=== PATIENT | female | born 1955 | race Caucasian/White ===

== ENCOUNTER 2016-09-08 11:35 | Observation (INO) | payer BC, OTHER ==
[2016-09-08 12:17] LABS: CHLORIDE,CL 104 mmol/L (98-107); SODIUM,NA 140 mmol/L (136-145)
[2016-09-08] MEDS ORDERED: Sodium Chloride 0.9% 1,000 ML IV ONE (12:56)
[2016-09-08] MEDS ORDERED: Ondansetron 4 MG/2 ML SDV IVPUSH PRN (12:56)
[2016-09-08] MEDS ORDERED: Morphine 2 MG/ML Syringe IVPUSH PRN (12:57)
--- NOTE | 2016-09-08 13:06 | EDM.PDOC ---
ED HPI GENERAL MEDICAL PROBLEM - General Chief Complaint: Gastrointestinal Problem Stated Complaint: Nausea, vomitting Time Seen by Provider: 09/08/16 12:22 Source of Information: Reports: Patient, Family History Limitations: Reports: No Limitations - History of Present Illness INITIAL COMMENTS - FREE TEXT/NARRATIVE: Patient is camping locally for the holiday. Brought in by for vomiting and diarrhea. Patient says she felt well yesterday until later in the evening. At that time she developed a headache. After awhile, nausea was noted. This was followed by several episodes of emesis. Eventually diarrhea began. She had multiple episodes of emesis/loose stools overnight, often at the same time. Unable to keep anything down. Complains of feeling hot/cold at times. No specific fever. Denies URI/cold symptoms. No SOB/cough/respiratory changes. Has discomfort in bilateral abdomen, mostly in lower quadrants. Denies other pain at this time. No complaints. Did see some bright red blood in more recent bowel movements. No other complaints. Overall unremarkable past history. Smoker. History of normal colonoscopy. No history of GI bleed. Lower Abdominal Pain Score (Numeric/FACES): 6 - Related Data Allergies Allergy/AdvReac Type Severity Reaction Status Date / Time Iodinated Contrast- Oral and Allergy Other Verified 09/08/16 11:53 IV Dye Home Meds: Home Meds Aspirin/Acetaminophen/Caffeine [Migraine Relief Caplet] 2 tab PO ASDIRECTED 05/23 [History] Folic Acid/Multivit-Min/Lutein [Multi-Vitamin Gummies] 1 tab PO DAILY 09/08/16 [ History] L. Acidophilus/Pectin, [place] [Acidophilus Capsule] 1 cap PO DAILY 09/08/16 [ History] Loratadine 10 mg PO ASDIRECTED PRN 09/08/16 [History] Nortriptyline HCl [Nortriptyline HCl] 25 mg PO DAILY 09/08/16 [History] Vitamin B Complex 1 each PO DAILY 09/08/16 [History] Past Medical History - Past Surgical History HEENT Surgical History: Reports: Tonsillectomy GI Surgical History: Reports: Appendectomy, Other (See Below) Other GI Surgeries/Procedures: Bladder lift Female Surgical History: Reports: Section, Hysterectomy Musculoskeletal Surgical History: Reports: Ganglion Cyst, Other (See Below) Other Musculoskeletal Surgeries/Procedures:: disk in neck replaced Social & Family History - Tobacco Use Smoking Status *Q: Current Some Day Smoker Years of Tobacco use: 40 Packs/Tins Daily: 0.5 - Caffeine Use Caffeine Use: Reports: Coffee, Soda - Recreational Drug Use Recreational Drug Use: No ED ROS GENERAL - Review of Systems Review Of Systems: See Below Constitutional: Reports: Chills, Malaise, Weakness, Fatigue, Diaphoresis, Decreased Appetite. Denies: Fever, Night Sweats HEENT: Reports: No Symptoms Respiratory: Reports: No Symptoms Cardiovascular: Reports: No Symptoms GI/Abdominal: Reports: Abdominal Pain, Bloody Stool, Diarrhea, Decreased Appetite, Nausea, Vomiting. Denies: Black Stool, Difficulty Swallowing, Distension, Hematemesis : Reports: No Symptoms Musculoskeletal: Reports: No Symptoms Skin: Reports: No Symptoms Neurological: Reports: Headache. Denies: Confusion, Dizziness, Numbness, Paresthesia, Pre-Existing Deficit, Syncope, Tingling, Trouble Speaking, Difficulty Walking, Change in Speech, Gait Disturbance Psychiatric: Reports: No Symptoms Hematologic/Lymphatic: Reports: No Symptoms ED EXAM, GI/ABD - Physical Exam Exam: See Below Exam Limited By: No Limitations General Appearance: Alert, WD/WN, Other (appears fatigued. Somewhat pale. ) Eyes: Bilateral: Normal Appearance, EOMI Ears: Normal External Exam Nose: Normal Inspection Throat/Mouth: Normal Inspection, Normal Lips, Normal Voice, No Airway Compromise Head: Atraumatic, Normocephalic Neck: Normal Inspection, Supple, Non-Tender, Full Range of Motion. No: Lymphadenopathy (L), Lymphadenopathy (R) Respiratory/Chest: No Respiratory Distress, Lungs Clear, Normal Breath Sounds, No Accessory Muscle Use, Chest Non-Tender Cardiovascular: Normal Peripheral Pulses, Regular Rate, Rhythm, No Edema, No Murmur GI/Abdominal: Soft, No Organomegaly, Hypoactive Bowel Sounds, Tenderness ( diffusely tender all 4 quadrants. ) (Female) Exam: Normal External Exam Rectal (Female) Exam: Normal Rectal Tone, Rectal Fissure, Other (Skin around rectum very raw, several areas of pinpoint bleeding noted. No hemorrhoids externally. Single fissure noted with mild bleeding. ) Back Exam: Normal Inspection. No: CVA Tenderness (L), CVA Tenderness (R) Extremities: Normal Range of Motion, Non-Tender, No Pedal Edema, Other (cap refill around 4 seconds) Neurological: Alert, Oriented, Normal Cognition, No Motor/Sensory Deficits Psychiatric: Normal Affect, Normal Mood Skin Exam: Warm, Dry, Intact Course - Vital Signs Last Recorded V/S: Last Vital Signs Temp 36.4 C 09/08/16 11:36 Pulse 80 09/08/16 11:36 Resp 18 09/08/16 11:36 BP 129/62 09/08/16 11:36 Pulse Ox 98 09/08/16 11:36 - Orders/Labs/Meds Orders: Medication Orders Acetaminophen (Tylenol) 650 mg PO Q4H PRN PRN Reason: analgesia/fever Sodium Chloride (Normal Saline) 1,000 mls @ 500 mls/hr IV .BOLUS ONE Stop: 09/08/16 14:55 Sodium Chloride (Normal Saline) 1,000 mls @ 125 mls/hr IV ASDIRECTED [facility] Morphine Sulfate (Morphine) 2 mg IVPUSH Q2H PRN PRN Reason: Pain (moderate 4-6) Ondansetron HCl (Zofran) 4 mg IVPUSH Q6H PRN PRN Reason: Nausea/Vomiting Labs: Laboratory Tests 09/08/16 09/08/16 Range/Units 12:00 12:00 WBC 16.5 H (4.0-10.2) K/uL RBC 4.91 (3.77-5.09) M/uL Hgb 15.2 (11.7-15.5) g/dL Hct 43.8 (34.0-46.0) % MCV 89.2 (84.0-98.0) fL MCH 31.0 (28.2-33.3) pg MCHC 34.7 (31.7-36.0) g/dL RDW 12.9 (11.2-14.1) % Plt Count 232 (150-350) K/uL Neut % (Auto) 90.7 H (45.0-80.0) % Lymph % (Auto) 6.9 L (10.0-50.0) % [place] % (Auto) 2.3 (2.0-14.0) % Eos % (Auto) 0.0 (0.0-5.0) % Baso % (Auto) 0.1 (0.0-2.0) % Neut # (Auto) 14.93 H (1.40-7.00) K/uL Lymph # (Auto) 1.13 (0.50-3.50) K/uL [place] # (Auto) 0.38 (0.00-1.00) K/uL Eos # (Auto) 0.00 (0.00-0.50) K/uL Baso # (Auto) 0.02 (0.00-0.20) K/uL Sodium 140 (136-145) mmol/L Potassium 3.8 (3.5-5.1) mmol/L Chloride 104 (98-107) mmol/L Carbon Dioxide 28.4 (21.0-32.0) mmol/L BUN 14 (7-18) mg/dL Creatinine 0.68 (0.51-1.17) mg/dL Est Cr Clr Drug Dosing 72.78 mL/min Estimated GFR (MDRD) > 60 mL/min Glucose 143 H (74-106) mg/dL Calcium 8.9 (8.5-10.1) mg/dL Total Bilirubin 0.3 (0.2-1.0) mg/dL AST 18 (15-37) U/L ALT 25 (12-78) U/L Alkaline Phosphatase 75 (46-116) IU/L Total Protein 7.2 (6.4-8.2) g/dL Albumin 3.7 (3.4-5.0) g/dL Meds: Medications Generic Name Dose Route Start Last Admin Trade Name Freq PRN Reason Stop Dose Admin Acetaminophen 650 mg 09/08/16 12:51 Tylenol PO Q4H PRN analgesia/fever Sodium Chloride 1,000 mls @ 500 mls/hr 09/08/16 12:56 Normal Saline IV 09/08/16 14:55 .BOLUS ONE Sodium Chloride 1,000 mls @ 125 mls/hr 09/08/16 15:00 Normal Saline IV ASDIRECTED [facility] Morphine Sulfate 2 mg 09/08/16 12:57 Morphine IVPUSH Q2H PRN Pain (moderate 4-6) Ondansetron HCl 4 mg 09/08/16 12:56 Zofran IVPUSH Q6H PRN Nausea/Vomiting - Re-Assessments/Exams Free Text/Narrative Re-Assessment/Exam: 09/08/16 13:10 Noted to have some bright red blood in toilet after using the bathroom. Single smaller clot noted in toilet. Suspect due to fissure and irritated skin noted during rectal exam. May also have some bleeding from internal hemorrhoid. Also suspect viral gastroenteritis. Patient initially developed headache prior to other symptoms. Cannot rule out food poisoning or other cause however. Stool cultures requested. Admitted for continued observation as well as pain control and IV rehydration. Will monitor for additional GI bleeding. Recheck hemaglobin/labs in AM. Cardiac monitoring ordered. Departure - Departure Time of Disposition: 13:19 Disposition: Refer to Observation Clinical Impression: (Ruled Out): Gastroenteritis - Discharge Information - Problem List & Annotations (1) Bright red blood per rectum SNOMED Code(s): 909731288 Code(s): K62.5 - HEMORRHAGE OF ANUS AND RECTUM Status: Acute Priority: Medium Current Visit: Yes Onset Date: 09/08/16 Annotation/Comment:: Small rectal fissure and skin breakdown around rectum noted on exam. Suspect due to irritation from multiple bowel movements overnight. Will continue to monitor for changes. (2) Dehydration SNOMED Code(s): 64149109 Code(s): E86.0 - DEHYDRATION Status: Acute Priority: High Current Visit : Yes Onset Date: 09/08/16 Annotation/Comment:: IV rehydration initiated. (3) Nausea and vomiting SNOMED Code(s): 43062008 Code(s): R11.2 - NAUSEA WITH VOMITING, UNSPECIFIED Status: Acute Priority : High Current Visit: Yes Onset Date: ~09/07/16 Qualifiers: Vomiting type: unspecified Vomiting Intractability: non-intractable Qualified Code(s): R11.2 - Nausea with vomiting, unspecified (4) Diarrhea SNOMED Code(s): 22566736 Code(s): R19.7 - DIARRHEA, UNSPECIFIED Status: Acute Priority: High Current Visit: Yes Onset Date: ~09/08/16 Qualifiers: Diarrhea type: unspecified type Qualified Code(s): R19.7 - Diarrhea, unspecified (5) Abdominal pain SNOMED Code(s): 47634004 Code(s): R10.9 - UNSPECIFIED ABDOMINAL PAIN Status: Acute Priority: High Current Visit: Yes Onset Date: ~09/08/16 Qualifiers: Abdominal location: generalized Qualified Code(s): R10.84 - Generalized abdominal pain - Problem List Review Problem List Initiated/Reviewed/Updated: Yes - Assessment/Plan Admission H&P: Please use this note as an admission H&P Assessment:: Gastroenteritis, most likely viral in nature. Dehydration. Bright red blood per rectum. Plan: Rehydrate. Treat nausea and pain. Watch for further changes/additional rectal bleeding.
[2016-09-08] MEDS ORDERED: Loperamide 1 MG/5 ML Soln 5 ML UD Cup PO PRN (13:47)
[2016-09-08] MEDS ORDERED: Loperamide 2 MG Tab PO ONE (13:51)
[2016-09-08] MEDS ORDERED: Loperamide 2 MG Tab PO PRN (13:52)
[2016-09-08] MEDS: Acetaminophen 325 MG Tab PO PRN (13:53)
[2016-09-08] MEDS: Sodium Chloride 0.9% 1,000 ML IV SCH ×2 (15:43→23:43)
[2016-09-09] MEDS ORDERED: Pantoprazole 40 MG Vial IVPUSH ONE ×2 (01:22→06:00)
[2016-09-09] MEDS: Sodium Chloride 0.9% 1,000 ML IV SCH ×2 (03:45→06:05)
[2016-09-09 08:43] VITALS: BP 109/63
[2016-09-09 08:48] LABS: CHLORIDE,CL 108 mmol/L (98-107); SODIUM,NA 141 mmol/L (136-145)
[2016-09-09] MEDS ORDERED: Potassium Chloride 20 MEQ Tab.ER PO ONE (09:39)
[2016-09-09] MEDS: Acetaminophen 325 MG Tab PO PRN (10:39)
[2016-09-09] MEDS ORDERED: Potassium Chloride 10 MEQ Tab.ER PO ONE (10:39)
--- NOTE | 2016-09-09 10:39 | PCM.DCSUM1 ---
Discharge Summary - Discharge Data Discharge Date: 09/09/16 Discharge Disposition: Home, Self-Care 01 Condition: Good - Discharge Diagnosis/Problem(s) (1) Bright red blood per rectum SNOMED Code(s): 835760073 ICD Code: K62.5 - HEMORRHAGE OF ANUS AND RECTUM Status: Acute Priority: Medium Current Visit: Yes Onset Date: 09/08/16 Problem Details: Small rectal fissure and skin breakdown around rectum noted on exam. Suspect due to irritation from multiple bowel movements. No additional bleeding noted after admission. (2) Dehydration SNOMED Code(s): 11226514 ICD Code: E86.0 - DEHYDRATION Status: Acute Priority: High Current Visit: Yes Onset Date: 09/08/16 Problem Details: IV rehydration (3) Nausea and vomiting SNOMED Code(s): 08792539 ICD Code: R11.2 - NAUSEA WITH VOMITING, UNSPECIFIED Status: Acute Priority: High Current Visit: Yes Onset Date: ~09/07/16 Qualifiers: Vomiting type: unspecified Vomiting Intractability: non-intractable Qualified Code(s): R11.2 - Nausea with vomiting, unspecified (4) Diarrhea SNOMED Code(s): 23982222 ICD Code: R19.7 - DIARRHEA, UNSPECIFIED Status: Acute Priority: High Current Visit: Yes Onset Date: ~09/08/16 Problem Details: Resolved after admission and single Imodium dose Qualifiers: Diarrhea type: unspecified type Qualified Code(s): R19.7 - Diarrhea, unspecified (5) Abdominal pain SNOMED Code(s): 67091947 ICD Code: R10.9 - UNSPECIFIED ABDOMINAL PAIN Status: Acute Priority: High Current Visit: Yes Onset Date: ~09/08/16 Qualifiers: Abdominal location: generalized Qualified Code(s): R10.84 - Generalized abdominal pain (6) UTI (urinary tract infection) SNOMED Code(s): 84427978 ICD Code: N39.0 - URINARY TRACT INFECTION, SITE NOT SPECIFIED Status: Acute Priority: Low Current Visit: Yes Onset Date: ~09/09/16 Problem Details: Mild elevation of WBC noted on UA. No urinary complaints - Patient Summary/Data Complications: none Hospital Course: Patient admitted and received IV fluids. Nausea controlled. No additional bowel movements after admission. Patient did have some cramping after eating jello this morning. She feels much better although is still tired. Small amount WBC noted in UA. WBC improved on day two but still elevated. K decreased this morning. Suspect viral cause for illness but cannot rule out food poisoning. Unable to collect stool for analysis. Patient requests discharge this morning and does not want additional observation and IV fluids. - Patient Instructions Diet: Clear Liquid Diet (advance diet as tolerated) Activity: As Tolerated Driving: Do Not Drive Showering/Bathing: May Shower - Discharge Plan Prescriptions/Med Rec: Dicyclomine [Bentyl] 20 mg PO ASDIRECTED PRN #20 tablet PRN Reason: Cramping Potassium Chloride [Klor-Con 10] 20 meq PO WITHBREAKFAST #30 tab.er Sulfamethoxazole/Trimethoprim [Septra DS] 1 tab PO BID #6 tablet Home Medications: Home Meds Aspirin/Acetaminophen/Caffeine [Migraine Relief Caplet] 2 tab PO ASDIRECTED 05/23 [History] Folic Acid/Multivit-Min/Lutein [Multi-Vitamin Gummies] 1 tab PO DAILY 09/08/16 [ History] L. Acidophilus/Pectin, [place] [Acidophilus Capsule] 1 cap PO DAILY 09/08/16 [ History] Loratadine 10 mg PO ASDIRECTED PRN 09/08/16 [History] Nortriptyline HCl 25 mg PO DAILY 09/08/16 [History] Vitamin B Complex 1 each PO DAILY 09/08/16 [History] Dicyclomine [Bentyl] 20 mg PO ASDIRECTED PRN #20 tablet 09/09/16 [Rx] Potassium Chloride [Klor-Con 10] 20 meq PO WITHBREAKFAST #30 tab.er 09/09/16 [Rx ] Sulfamethoxazole/Trimethoprim [Septra DS] 1 tab PO BID #6 tablet 09/09/16 [Rx] Patient Handouts: Viral Gastroenteritis, Adult, [id number] Forms: ED Department Discharge Referrals: Hermes Ulrich MD [Primary Care Provider] - - Discharge Summary/Plan Comment DC Time >30 min.: No Discharge Summary/Plan Comment: Treat for UTI. Obtain stool sample for culture/analysis if symptoms continue. Advance diet as tolerated. Continue potassium supplementation. Recommend follow up within the week for recheck of K. - General Info Date of Service: 09/09/16 Admission Dx/Problem (Free Text: Vomiting/diarrhea and dehydration. Functional Status: Reports: pain controlled (continues to have intermittent abdominal cramping. ), tolerating diet (clear liquids), ambulating, urinating. Denies: new symptoms - Review of Systems General: Reports: Fatigue. Denies: Fever, Chills, Night Sweats HEENT: Reports: no symptoms Pulmonary: Reports: no symptoms Cardiovascular: Reports: No Symptoms Gastrointestinal: Reports: Abdominal pain (cramping after eating), Decreased appetite. Denies: Constipation, Diarrhea, Hematochezia, Melena, Nausea, Vomiting Genitourinary: Reports: no symptoms Musculoskeletal: Reports: no symptoms Skin: Reports: no symptoms Neurological: Reports: No Symptoms Psychiatric: Reports: no symptoms - Patient Data Vitals - Most Recent: Last Vital Signs Temp 36.4 C 09/09/16 08:00 Pulse 83 09/09/16 08:00 Resp 18 09/09/16 08:00 BP 109/63 09/09/16 08:00 Pulse Ox 95 09/09/16 08:00 Weight - Most Recent: 76.685 kg I&O - Last 24 hours: Intake & Output 09/08/16 09/09/16 09/09/16 22:59 06:59 14:59 Intake Total 1197 1615 Output Total 900 Balance 1197 715 Lab Results - Last 24 hrs: Laboratory Results - last 24 hr 09/08/16 09/09/16 09/09/16 Range/Units 22:00 08:25 08:25 WBC 15.4 H (4.0-10.2) K/uL RBC 4.11 (3.77-5.09) M/uL Hgb 12.8 D (11.7-15.5) g/dL Hct 37.5 (34.0-46.0) % MCV 91.2 (84.0-98.0) fL MCH 31.1 (28.2-33.3) pg MCHC 34.1 (31.7-36.0) g/dL RDW 13.1 (11.2-14.1) % Plt Count 192 (150-350) K/uL Neut % (Auto) 79.5 (45.0-80.0) % Lymph % (Auto) 15.1 (10.0-50.0) % [place] % (Auto) 4.9 (2.0-14.0) % Eos % (Auto) 0.4 (0.0-5.0) % Baso % (Auto) 0.1 (0.0-2.0) % Neut # (Auto) 12.26 H (1.40-7.00) K/uL Lymph # (Auto) 2.32 (0.50-3.50) K/uL [place] # (Auto) 0.75 (0.00-1.00) K/uL Eos # (Auto) 0.06 (0.00-0.50) K/uL Baso # (Auto) 0.02 (0.00-0.20) K/uL Sodium 141 (136-145) mmol/L Potassium 3.3 L (3.5-5.1) mmol/L Chloride 108 H (98-107) mmol/L Carbon Dioxide 27.2 (21.0-32.0) mmol/L BUN 5 L (7-18) mg/dL Creatinine 0.61 (0.51-1.17) mg/dL Est Cr Clr Drug Dosing 81.13 mL/min Estimated GFR (MDRD) > 60 mL/min Glucose 119 H (74-106) mg/dL Calcium 7.5 L (8.5-10.1) mg/dL Total Bilirubin 0.4 (0.2-1.0) mg/dL AST 14 L (15-37) U/L ALT 16 (12-78) U/L Alkaline Phosphatase 60 (46-116) IU/L Total Protein 5.5 L (6.4-8.2) g/dL Albumin 2.6 L (3.4-5.0) g/dL Specimen Type Urinvoid Urine Color Dark yellow Urine Appearance Slightly cloudy Urine pH 6.0 (5.0-9.0) Ur Specific [place] 1.020 (1.005-1.030) Urine Protein Negative (NEGATIVE) mg/dL Urine Glucose (UA) Negative (NEGATIVE) mg/dL Urine Ketones Negative (NEGATIVE) mg/dL Urine Occult Blood Negative (NEGATIVE) Urine Nitrite Negative (NEGATIVE) Urine Bilirubin Negative (NEGATIVE) Urine Urobilinogen 0.2 (0.2-1.0) E.U./dL Ur Leukocyte Esterase Negative (NEGATIVE) Urine RBC 0-5 /HPF Urine WBC 10-20 H /HPF Ur Epithelial Cells Moderate H /LPF Urine Bacteria Moderate H (NONE TO FEW) /HPF Urine Mucus Many H (NEGATIVE) /LPF Med Orders - Current: Current Medications Acetaminophen (Tylenol) 650 mg PO Q4H PRN PRN Reason: analgesia/fever Last Admin: 09/08/16 13:53 Dose: 650 mg Sodium Chloride (Normal Saline) 1,000 mls @ 125 mls/hr IV ASDIRECTED [facility] Last Admin: 09/09/16 06:05 Dose: 125 mls/hr Loperamide HCl (Imodium Ad) 2 mg PO ASDIRECTED PRN PRN Reason: Diarrhea Last Admin: 09/09/16 05:31 Dose: 2 mg Morphine Sulfate (Morphine) 2 mg IVPUSH Q2H PRN PRN Reason: Pain (moderate 4-6) Ondansetron HCl (Zofran) 4 mg IVPUSH Q6H PRN PRN Reason: Nausea/Vomiting Last Admin: 09/08/16 13:54 Dose: 4 mg Discontinued Medications Sodium Chloride (Normal Saline) 1,000 mls @ 500 mls/hr IV .BOLUS ONE Stop: 09/08/16 14:55 Last Admin: 09/08/16 13:36 Dose: 500 mls/hr Loperamide HCl (Imodium) 4 mg PO ASDIRECTED PRN PRN Reason: Diarrhea Loperamide HCl (Imodium Ad) 4 mg PO ONETIME ONE Stop: 09/08/16 13:52 Last Admin: 09/08/16 13:59 Dose: 4 mg Pantoprazole Sodium (Protonix Iv) 40 mg IVPUSH ONETIME ONE Stop: 09/09/16 01:23 Last Admin: 09/09/16 03:34 Dose: Not Given Pantoprazole Sodium (Protonix Iv) 40 mg IVPUSH ONETIME ONE Stop: 09/09/16 06:01 Last Admin: 09/09/16 05:15 Dose: 40 mg Potassium Chloride (Klor-Con M20) 20 meq PO ONETIME ONE Stop: 09/09/16 09:40 Last Admin: 09/09/16 09:58 Dose: 20 meq - Exam General: Reports: alert, oriented, cooperative, no acute distress HEENT: Reports: Pupils equal, Pupils reactive, EOMI, Mucous membr. moist/pink Neck: Reports: supple Lungs: Reports: Clear to auscultation, Normal respiratory effort Cardiovascular: Reports: Regular Rate, Regular Rhythm Abdomen: Reports: other (bowel sounds decreased but present, diffuse mild tenderness with palpation all quadrants.). Denies: no distension, rigidity, rebound, guarding (Female) Exam: Deferred Rectal (Female) Exam: Deferred Back Exam: Reports: Normal Inspection Extremities: Reports: no edema Skin: Reports: warm, dry, intact Neurological: Reports: no new focal deficit Psy/Mental Status: Reports: alert, normal affect, normal mood *Q Meaningful Use (DIS) - VTE *Q VTE Criteria *Q: - Stroke *Q Stroke Criteria *Q: - AMI *Q AMI Criteria *Q:
--- NOTE | 2016-09-11 20:05 | PCM.SN ---
- Free Text/Narrative Note: Telephone consultation with the patient at 20:00 hours today discussing recent positive urine culture results for group B strep. Patient will complete her previously prescribed Septra. Initiate tomorrow morning additional amoxicillin 875 mg by mouth twice a day 10 days. Prescription called to [facility] in [place], telephone #[phone] by me this evening. The patient is feeling much better since hospital discharge. Followup with your regular provider in 10-14 days as directed. Urine tests should be repeated at follow up visit with possible repeat urine culture,etc. at that time. Extensive precautions were given to the patient, who is in agreement with the treatment plan.
== END 2016-09-09 11:05 | disposition home or self-care (01) ==
LOC: LL.ED 11:35 → LL.MS 12:49
PROVIDERS: ADMIT Emergency Medicine; ATTEND Emergency Medicine
DX: K62.5 Hemorrhage of anus and rectum (principal); E86.0 Dehydration; R11.2 Nausea with vomiting, unspecified; R19.7 Diarrhea, unspecified; R10.84 Generalized abdominal pain; N39.0 Urinary tract infection, site not specified; Z79.82 Long term (current) use of aspirin; Z79.899 Other long term (current) drug therapy; Z91.041 Radiographic dye allergy status; Z90.49 Acquired absence of other specified parts of digestive tract; Z90.710 Acquired absence of both cervix and uterus; Z98.890 Other specified postprocedural states; F17.210 Nicotine dependence, cigarettes, uncomplicated
CPT/HCPCS: 36000; 36415; 74020; 80053; 81001; 85025; 85610; 87086; 87088; 96361; 96374; 96375; 99285; A9270; C9113; G0378; J2405; J7030

== ENCOUNTER 2020-11-17 21:40 | Emergency (ER) | payer OTHER ==
[2020-11-17 21:42] VITALS: BP 148/69; PULSE 72
--- NOTE | 2020-11-17 22:48 | EDM.PDOC ---
ED HPI GENERAL MEDICAL PROBLEM - General Chief Complaint: Bite:Animal, Insect Stated Complaint: bug bite Time Seen by Provider: 11/17/20 21:55 Source of Information: Reports: Patient History Limitations: Reports: No Limitations - History of Present Illness INITIAL COMMENTS - FREE TEXT/NARRATIVE: Pt. presents to ER with complaints of possible infected bug bite to back of R calf. She states that this happened yesterday. She states that the area surrounding the bite has become more erythematous and indurated since the event. She has taken 1 dose of oral benadryl. She has been putting antibiotic ointment into the bite. Denies any fever or chills. No numbness/tingling distal to the area of injury. Onset Date: 11/16/20 Location: Reports: Lower Extremity, Right Quality: Reports: Burning Severity: Mild Right Leg Pain Score (Numeric/FACES): 5 - Related Data Allergies Allergy/AdvReac Type Severity Reaction Status Date / Time Iodinated Contrast Media Allergy Other Verified 09/08/16 11:53 [Iodinated Contrast- Oral and IV Dye] Home Meds: Home Meds Ibuprofen 600 mg PO Q6HR PRN 11/17/20 [History] diphenhydrAMINE [Benadryl] 25 mg PO Q4H PRN 11/17/20 [History] Past Medical History - Past Surgical History HEENT Surgical History: Reports: Tonsillectomy GI Surgical History: Reports: Appendectomy, Other (See Below) Other GI Surgeries/Procedures: Bladder lift Female Surgical History: Reports: Section, Hysterectomy Musculoskeletal Surgical History: Reports: Ganglion Cyst, Other (See Below) Other Musculoskeletal Surgeries/Procedures:: disk in neck replaced Social & Family History - Tobacco Use Tobacco Use Status *Q: Never Tobacco User Second Hand Smoke Exposure: No - Caffeine Use Caffeine Use: Reports: None - Recreational Drug Use Recreational Drug Use: No ED ROS GENERAL - Review of Systems Review Of Systems: Comprehensive ROS is negative, except as noted in HPI. ED EXAM, ANIMAL BITE - Physical Exam Exam: See Below Skin Exam: Other (Insect bite noted to posterior aspect of R calf. There is some clear drainage from the bite. Surrounding area is indurated. Area is erythematous. No abscess noted. No retained foreign body noted.) Course - Vital Signs Last Recorded V/S: Last Vital Signs Temp 36.9 C 11/17/20 21:41 Pulse 72 11/17/20 21:41 Resp 14 11/17/20 21:41 BP 148/69 H 11/17/20 21:41 Pulse Ox 99 11/17/20 21:41 Departure - Departure Time of Disposition: 22:00 Disposition: Home, Self-Care 01 Clinical Impression: Cellulitis - Discharge Information Instructions: Cellulitis, Adult, Cephalexin Tablets or Capsules, Probiotics Forms: ED Department Discharge Additional Instructions: Cephalexin 500mg 1 tab 4 times daily for 10 days It will take several days for this to get better, and it may get worse temporarily. Ibuprofen 200mg 3 tabs every 6 hours as needed for pain Follow-up in clinic in 10-14 days, sooner if not gradually improving. Sepsis Event Note (ED) - Focused Exam Vital Signs: Vital Signs Temp Pulse Resp BP Pulse Ox 11/17/20 21:41 36.9 C 72 14 148/69 H 99 - Assessment/Plan Plan: Cephalexin 500mg 1 tab 4 times daily for 10 days It will take several days for this to get better, and it may get worse temporarily. Ibuprofen 200mg 3 tabs every 6 hours as needed for pain Follow-up in clinic in 10-14 days, sooner if not gradually improving.
== END 2020-11-17 22:00 | disposition home or self-care (01) ==
LOC: LL.ED 21:40
DX: L03.115 Cellulitis of right lower limb (principal); Z91.041 Radiographic dye allergy status
CPT/HCPCS: 99283